=== PATIENT | female | born 1995 | race African-American/Black ===

== ENCOUNTER 2020-09-28 08:33 | Emergency (ER) | payer OTHER ==
[2020-09-28 09:36] LABS: Bilirubin Neg (Negative); Blood, Urine 250 (Negative); Clarity Cloudy (Clear); Glucose, Urine (Dipstick) Normal (Negative); Ketone, Urine Negative (Negative); Leukocyte 100 (Negative); Nitrite Negative (Negative); Protein, Urine (Dipstick) 30 mg/dl (Neg-Trace); Urobilinogen Normal mg/dL (Less than 2)
[2020-09-28 10:05] LABS: RBC/HPF 21-50 HPF (0-3)
[2020-09-28 10:06] LABS: Bacteria/HPF 3+ HPF (None Seen); WBC/HPF 21-50 HPF (0-3)
== END 2020-09-28 10:10 | disposition home or self-care (01) ==
LOC: CSHERS 08:33
DX: N39.0 Urinary tract infection, site not specified (principal)
CPT/HCPCS: 81003; 81015; 87077; 87086; 87186; 99283

== ENCOUNTER 2023-04-08 09:45 | Emergency (ER) | payer OTHER ==
[2023-04-08 10:13] LABS: Bilirubin Neg (Negative); Blood, Urine 250 (Negative); Clarity Slightly Cloudy (Clear); Glucose, Urine (Dipstick) Normal (Negative); Ketone, Urine Negative (Negative); Leukocyte 100 (Negative); Nitrite Negative (Negative); Protein, Urine (Dipstick) 30 mg/dl (Neg-Trace)
[2023-04-08 10:31] LABS: Bacteria/HPF 2+ HPF (None Seen); CAUTI Indications for Culture Pregnancy; Mucous/LPF 1+ LPF (<2+); RBC/HPF 21-50 HPF (0-3); Urine Culture Reflex Yes Yes
[2023-04-08 10:36] LABS: Hematocrit 32.8 % (34.9-44.5); Hemoglobin 11.8 g/dL (12.0-15.5); Mean Corpuscular Volume 91.6 fl (81.6-98.3); Mean Platelet Volume 10.4 fl (7.4-10.4); Platelet Count 171 10x3/uL (150-450); RBC Distribution Width 11.5 % (11.5-14.5); Red Blood Cell (RBC) Count 3.58 10x6/uL (3.90-5.03); White Blood Cell (WBC) Count 6.3 10x3/uL (3.5-10.5)
[2023-04-08 10:52] LABS: Anion Gap 13 mmol/L (10-20); BUN (Urea Nitrogen) 6 mg/dL (7.0-18.7); Calc. Creatinine Clearance 0 mL/min (70-130); Calcium 8.9 mg/dL (7.8-10.44); Carbon Dioxide 19 mmol/L (22-29); Chloride 106 mmol/L (98-107); Estimated GFR 122; Glucose 76 mg/dL (70-105); Potassium 3.8 mmol/L (3.5-5.1); Sodium 134 mmol/L (136-145)
[2023-04-08 10:59] LABS: Eosinophils 4 % (0-10); Lymphocytes 32 % (21-51); Monocytes 10 % (0-10); Reactive Lymphocytes 11 % (0-10)
[2023-04-08 11:01] LABS: Large Platelets SLIGHT (None Seen); Platelet Adequacy Comment Appears Adequate; RBC Morph Comment Within Normal Limits
[2023-04-08 11:10] LABS: MDiff Complete? YES
== END 2023-04-08 12:06 | disposition home or self-care (01) ==
LOC: CSHERS 09:45
DX: O20.9 Hemorrhage in early pregnancy, unspecified (principal); Z3A.15 15 weeks gestation of pregnancy
CPT/HCPCS: 36415; 76815; 80048; 81001; 84702; 85025; 86900; 86901; 87077; 87086

== ENCOUNTER 2023-10-09 05:25 | Inpatient (IN) | payer OTHER ==
[2023-10-09] MEDS ORDERED: fentaNYL 50 mcg/mL 1 mL Vial SLOW IVP PRN (05:32)
[2023-10-09] MEDS ORDERED: Oxytocin 30 units/NS 500 ML 500 ML IV SCH (05:32)
[2023-10-09] MEDS ORDERED: Lidocaine 1% (PF) 30 ML VIAL SC PRN (05:32)
[2023-10-09] MEDS ORDERED: Tranexamic Acid 1,000 MG/10 ML VIAL IVP PRN (05:32)
[2023-10-09] MEDS ORDERED: HYDROcodone/Acetaminophen 5/325 mg Tablet PO PRN (05:32)
[2023-10-09] MEDS ORDERED: Diphenoxylate HCl/Atropine Tablet PO PRN (05:32)
[2023-10-09] MEDS ORDERED: Zidovudine 200 MG/20 ML VIAL IVPB SCH (05:32)
[2023-10-09] MEDS ORDERED: Methylergonovine 0.2 MG/ML VIAL IM PRN (05:32)
[2023-10-09] MEDS ORDERED: Carboprost 250 MCG/ML AMP IM PRN (05:32)
[2023-10-09] MEDS ORDERED: Misoprostol 200 MCG TAB PR PRN (05:32)
[2023-10-09] MEDS ORDERED: Acetaminophen 500 MG TAB PO PRN (05:32)
[2023-10-09] MEDS ORDERED: Promethazine HCl 25 MG/ML VIAL IM PRN ×2 (05:32→13:13)
[2023-10-09] MEDS ORDERED: hydrALAZINE 20 MG/ML VIAL SLOW IVP PRN (05:32)
[2023-10-09] MEDS ORDERED: Ondansetron PF 4 MG/2 ML Vial IVP PRN ×2 (05:32→13:13)
[2023-10-09 05:55] VITALS: BMI 40.7
[2023-10-09] MEDS: Lactated Ringer's 1,000 ML IV SCH (06:40)
[2023-10-09 06:57] LABS: Hematocrit 27.4 % (34.9-44.5); Hemoglobin 9.4 g/dL (12.0-15.5); Mean Corpuscular HGB CONC 34.3 g/dL (32.0-36.0); Mean Corpuscular Hemoglobin 31.1 pg (27.0-33.0); Mean Corpuscular Volume 90.7 fl (81.6-98.3); Mean Platelet Volume 11.1 fl (7.4-10.4); Platelet Count 208 10x3/uL (150-450); RBC Distribution Width 13.1 % (11.5-14.5); Red Blood Cell (RBC) Count 3.02 10x6/uL (3.90-5.03); White Blood Cell (WBC) Count 6.6 10x3/uL (3.5-10.5)
[2023-10-09] MEDS ORDERED: DEXTROSE 5% IVPB SCH (07:00)
[2023-10-09] MEDS ORDERED: ZIDOVUDINE IVPB SCH (07:00)
[2023-10-09] MEDS ORDERED: WATER IVPB SCH (07:00)
[2023-10-09] MEDS: Penicillin G Potassium 5 MILL.UNITS in Sodium Chloride 0.9% 100 ML IVPB SCH (07:17)
[2023-10-09] MEDS: Sodium Chloride 0.9% 1,000 ML IV SCH (07:23)
[2023-10-09 07:32] LABS: Syphilis Antibody Nonreactive (Nonreactive); Syphilis Antibody Index 0.03 S/CO (<1.00 Non-Reactive)
[2023-10-09 07:33] LABS: HBsAg Index 0.16 S/CO (0-0.99); Hep B Surf Ag - L&D Non-Reactive S/CO (NonReactive)
[2023-10-09] MEDS: Oxytocin 30 units/NS 500 ML 500 ML IV SCH (07:59)
[2023-10-09] MEDS: DEXTROSE 5% IVPB SCH (08:56)
[2023-10-09] MEDS: WATER IVPB SCH (08:56)
[2023-10-09] MEDS: ZIDOVUDINE IVPB SCH (08:56)
[2023-10-09] MEDS: Penicillin G 2.5 MILL.units 2.5 MILL.UNITS in Premix 1 BAG IVPB SCH (10:48)
[2023-10-09] MEDS: fentaNYL/Ropivacaine Epidural 100 ML ONE (12:55)
[2023-10-09] MEDS ORDERED: Moisturizing Cream (Eucerin) 113 GM JAR TOP PRN (13:13)
[2023-10-09] MEDS ORDERED: ePHEDrine Sulfate 50 MG/10 ML VIAL SLOW IVP PRN (13:13)
[2023-10-09] MEDS ORDERED: Lactated Ringer's 500 ML IV PRN (13:13)
[2023-10-09] MEDS ORDERED: diphenhydrAMINE 50 MG/ML VIAL IVP PRN (13:13)
[2023-10-09] MEDS ORDERED: Naloxone HCl 0.4 mg/ml Vial IVP PRN ×2 (13:13)
[2023-10-09] MEDS ORDERED: Acetaminophen 325 MG TAB PO PRN (13:13)
[2023-10-09] MEDS ORDERED: Communication Order-Pharmacy FS SCH (13:15)
[2023-10-09] MEDS ORDERED: fentaNYL 2 mcg/Ropivacaine 0.2% Epidural 100 ML CADD EPIDURAL SCH (13:15)
[2023-10-10] MEDS: Ibuprofen 800 MG TAB PO PRN (05:16)
[2023-10-10] MEDS ORDERED: Ondansetron PF 4 MG/2 ML Vial IVP PRN (10:39)
[2023-10-10] MEDS ORDERED: Bisacodyl 10 MG SUPP PR PRN (10:39)
[2023-10-10] MEDS ORDERED: Promethazine HCl 25 MG/ML VIAL IM PRN (10:39)
[2023-10-10] MEDS ORDERED: Milk Of Magnesia 30 ML UDCUP PO PRN (10:39)
[2023-10-10] MEDS ORDERED: Boostrix 0.5 ML (Tdap) VIAL (>/=7 yrs of age) IM ONE (10:39)
[2023-10-10] MEDS ORDERED: HYDROcodone/Acetaminophen 5/325 mg Tablet PO PRN (10:39)
[2023-10-10] MEDS ORDERED: diphenhydrAMINE 25 MG CAP PO PRN (10:39)
[2023-10-10] MEDS ORDERED: hydrALAZINE 20 MG/ML VIAL SLOW IVP PRN (10:39)
[2023-10-10] MEDS: Ibuprofen 800 MG TAB PO SCH (13:04)
[2023-10-10] MEDS: Prenatal Vitamin 1 TAB PO SCH ×2 (13:05)
[2023-10-10] MEDS: Ferrous Sulfate 325 MG TAB PO SCH (13:05)
[2023-10-10] MEDS: Docusate 100 MG CAP PO SCH ×2 (13:06→21:31)
[2023-10-11] MEDS: Ferrous Sulfate 325 MG TAB PO SCH (08:17)
[2023-10-11 09:01] VITALS: BP 136/87; TEMP 97.5
== END 2023-10-11 12:45 | disposition home or self-care (01) | DRG 806 ==
LOC: CSHLD 05:25 → CSHPP 23:40
PROVIDERS: ADMIT Family Medicine; ATTEND Family Medicine
PROC: 10E0XZZ Delivery of Products of Conception, External Approach (ICD-10-PCS; principal; 2023-10-09)
DX: O98.72 Human immunodeficiency virus [HIV] disease complicating childbirth (principal); B20 Human immunodeficiency virus [HIV] disease; Z37.0 Single live birth; O99.824 Streptococcus B carrier state complicating childbirth; Z3A.40 40 weeks gestation of pregnancy; Z79.899 Other long term (current) drug therapy; Z79.82 Long term (current) use of aspirin
CPT/HCPCS: 85027; 86780; 86850; 86870; 86900; 86901; 86922; 87340; J2540; J2590; J3485; J3490; J7050; J7070; J7120

== ENCOUNTER 2025-02-24 21:22 | Emergency (ER) | payer OTHER, SELFPAY | END 2025-02-25 00:54 | disposition home or self-care (01) | LOC: CSHERS 21:22 | DX: S16.1XXA Strain of muscle, fascia and tendon at neck level, initial encounter (principal); V43.53XA Car driver injured in collision with pick-up truck in traffic accident, initial encounter; Y92.481 Parking lot as the place of occurrence of the external cause | CPT/HCPCS: 99283 ==